=== PATIENT | female | born 1990 | race Caucasian/White ===

== ENCOUNTER 2016-09-25 01:47 | Emergency (ER) | payer OTHER ==
[2016-09-25 02:58] LABS: CALCIUM 8.8 mg/dL (8.5-10.1); CARBON DIOXIDE 22.8 mmol/L (21-32); CHLORIDE SERUM 102 mmol/L (98-107); CREATININE SERUM 0.6 mg/dL (0.6-1.0); GFR1 > 60 mL/min; GLUCOSE SERUM 116 mg/dL (74-106); POTASSIUM SERUM 3.4 mmol/L (3.5-5.1); SODIUM SERUM 137 mmol/L (136-145)
[2016-09-25 03:02] LABS: ALKALINE PHOSPHATASE 74 U/L (46-116); ALT/SGPT 36 U/L (14-59); AST/SGOT 53 U/L (15-37); BILIRUBIN TOTAL 0.24 mg/dL (0.20-1.00); MAGNESIUM 1.7 mg/dL (1.8-2.4)
[2016-09-25 03:03] LABS: BASOPHIL % 0.3 % (0-2); PLATELET COUNT 283 x10^3mcL (130-400); RED CELL DISTRIBUTION WIDTH 13.5 % (11.5-14.5)
[2016-09-25 03:05] LABS: ALBUMIN 3.3 g/dL (3.4-5.0)
[2016-09-25 03:59] LABS: AMPHETAMINE QUAL UR NONE DETECTED (NEG <=1000)
[2016-09-25 06:20] VITALS: BP 117/65
== END 2016-09-25 06:20 | disposition home or self-care (01) ==
LOC: ED 01:47
PROVIDERS: Emergency Medicine
DX: R07.89 Other chest pain (principal); R10.13 Epigastric pain
CPT/HCPCS: 85378; J1885; J2060; J3010; J7030; Q0092